=== PATIENT | female | born 1995 | race Caucasian/White ===

== ENCOUNTER 2016-08-18 19:00 | Emergency (ER) | payer BC ==
[~2016-08-18] VITALS: Ht 172.7 cm; Wt 66.8 kg
[~2016-08-18 19:00] MED LIST: BCPILLS PO; CNC/36 PO; ESCI10TA17 PO; PRLSR20 PO
[2016-08-18 19:04] VITALS: TEMP 36.4; Ht 172.7 cm; Wt 66.8 kg
[2016-08-18] MEDS ORDERED: OPTIRAY 320 IV PRN (19:30)
[2016-08-18 19:50] LABS: BASO % 0.1 %; BASO ABS # 0.01 K/uL (0-0.2); COMPLETE YES; EOS % 0.2 %; HEMATOCRIT 37.7 % (37-47); IG% 0.2 %; LYMPH ABS # 0.96 K/uL (1.2-3.4); MEAN CELL VOLUME 78.9 fL (80-100); MEAN CORPUSCULAR HEMOGLOBIN 25.5 pg (25-34); MEAN CORPUSCULAR HGB CONC 32.4 g/dl (32-36); MONO % 1.3 %; NEUT % 90.2 %; PLATELET COUNT 240 K/uL (130-400); RED BLOOD COUNT 4.78 M/uL (4.2-5.4); WHITE BLOOD COUNT 12.02 K/uL (4.8-10.8)
[2016-08-18] MEDS ORDERED: ONDANSETRON INJ 2 MG/ML 2 ML VIAL IV STA (19:52)
[2016-08-18] MEDS ORDERED: MoRPHine SULFATE 4 MG/ML 1 ML CARP\\VIAL IV STA (19:52)
[2016-08-18] MEDS ORDERED: SODIUM CHLORIDE 0.9% 1000ML 1,000 ML IV STA (19:52)
[2016-08-18 20:13] LABS: BUN/CREATININE RATIO 10.2 (10-20); CALCIUM 8.7 mg/dl (8.5-10.1); CREATININE 0.78 mg/dl (0.60-1.20); POTASSIUM 3.6 mmol/L (3.5-5.1)
[2016-08-18 20:53] LABS: URINE APPEARANCE TURBID (CLEAR); URINE BILIRUBIN NEG (NEG); URINE COLOR DK YELLOW; URINE EPITHELIAL CELL AUTO >30 /lpf (0-5); URINE NITRITE NEG (NEG); URINE SPECIFIC GRAVITY 1.027 (1.000-1.030); UROBILINOGEN NEG (NEG); ZZUR CULT IF INDIC CLEAN CATCH NO
[2016-08-18 20:54] LABS: MANUAL MICROSCOPIC REQUIRED? NO; REVIEW REQ? YES
--- NOTE | 2016-08-18 21:42 | DIAGNOSTIC IMAGING REPORT ---
CT OF THE ABDOMEN AND PELVIS WITH CONTRAST CLINICAL HISTORY: Right lower quadrant abdominal pain. COMPARISON STUDY: None. TECHNIQUE: Following IV administration of 119 mL of [id number], axial images of the abdomen and pelvis were obtained from the lung bases to the proximal femurs. Images were reviewed in the axial, sagittal, and coronal planes. IV contrast was administered without complication. Oral contrast was administered. CT DOSE: 401.61 mGy.cm FINDINGS: Lung bases are clear. The liver, spleen, adrenal glands, kidneys and pancreas are normal. There is no peripancreatic or pericholecystic infiltration. There is no hydronephrosis. Note is made of a left upper quadrant jejunojejunal intussusception that measures 6 cm in length. There is no upstream dilatation. The appendix is normal in caliber and filled with gas and oral contrast. There is no periappendiceal infiltration. Apparent mild wall thickening of the mid to distal transverse colon, descending colon and sigmoid colon is probably due to underdistention. There is a small amount of fluid within the pelvis. The ovaries are not enlarged. No enlarged lymph nodes are present within the abdomen or the pelvis. IMPRESSION: 1. Normal appendix. 2. Left upper quadrant jejunojejunal intussusception. No upstream dilatation. These are typically transient and of doubtful clinical significance. 3. Small amount of fluid within the pelvis. 4. Apparent wall thickening of the left colon. This is likely due to underdistention although a nonspecific colitis could appear similar. Electronically signed by: John Barrera M.D. 08/18/2016 9:40 PM Dictated Date/Time: 08/18/2016 9:33 PM
[2016-08-18] MEDS ORDERED: ONDA4TAB10 SL (21:53)
--- NOTE | 2016-08-18 21:54 | EMERGENCY ROOM VISIT NOTE ---
History First contact with patient: 19:08 Chief Complaint: ABDOMINAL PAIN Stated Complaint: THINKS APPENDIX BURST Nursing Triage Summary: right sided lower abdominal pain for two hours with increasing intensity. no vomiting noted. History of Present Illness The patient is a 21 year old female who presents to the Emergency Room with complaints of right-sided abdominal pain. The patient states that the pain began 2 hours ago. She states that at first, the pain was generalized and it has moved to the right lower abdomen. She has had one episode of diarrhea. She denies vomiting, but does feel slightly nauseous. She is concerned that her appendix may have burst. She rates her discomfort an 8/10. She took Tums for her symptoms without relief. She denies any history of abdominal surgery. She states that she is due to start her menstrual period this week. She denies any urinary symptoms, vaginal discharge, chest pain or shortness of breath. She denies hematochezia or melena. No recent antibiotic use or recent illness. Review of Systems A complete 10-point Review of Systems was discussed with the patient, with pertinent positives and negatives listed in the History of Present Illness. All remaining Review of Systems questions can be considered negative unless otherwise specified. Past Medical/Surgical History Medical Problems: (1) Back pain (2) History of orthopedic surgery (3) Upper back pain on right side Family History Cancer Hypertension Social History Smoking Status: Never Smoker Alcohol Use: none Drug Use: none Marital Status: single Housing Status: lives with family, lives with roommate Occupation Status: [employer] student Current/Historical Medications Scheduled Control Pills ( Control Pills), 1 TAB PO DAILY Escitalopram (Lexapro), 10 MG PO DAILY Methylphenidate Hcl (Concerta), 36 MG PO DAILY Omeprazole (Prilosec), 20 MG PO DAILY Ondasetron Odt (Zofran Odt), 4 MG SL Q6H Allergies Coded Allergies: Coconut (Unverified Allergy, Unknown, hives, 08/18/16) Physical Exam Vital Signs Date Time Temp Pulse Resp B/P Pulse Ox O2 Delivery O2 Flow Rate FiO2 08/18/16 22:02 72 20 117/67 99 08/18/16 21:00 84 20 118/68 100 Room Air 08/18/16 19:04 36.4 100 18 117/76 97 Room Air Physical Exam VITALS: Vitals are noted on the nurse's note and reviewed by myself. Vital signs stable. GENERAL: This is a 21-year-old female, in no acute distress, nondiaphoretic, well-developed well-nourished. SKIN: Capillary reflex less than 2 seconds. HEART: Regular rate and rhythm without murmurs gallops or rubs. LUNGS: Clear to auscultation bilaterally without wheezes, rales or rhonchi. ABDOMEN: Positive bowel sounds x 4. The abdomen is soft. There is mild tenderness to palpation of the right lower quadrant. No guarding or rebound tenderness. Negative Rovsing sign. Negative jar sign. NEURO: Patient was alert and oriented to person place and time. Medical Decision & Procedures ER Provider Diagnostic Interpretation: CT OF THE ABDOMEN AND PELVIS WITH CONTRAST IMPRESSION: 1. Normal appendix. 2. Left upper quadrant jejunojejunal intussusception. No upstream dilatation. These are typically transient and of doubtful clinical significance. 3. Small amount of fluid within the pelvis. 4. Apparent wall thickening of the left colon. This is likely due to underdistention although a nonspecific colitis could appear similar. Laboratory Results 08/18/16 19:30 Red Blood Count 4.78, Mean Corpuscular Volume 78.9, Mean Corpuscular Hemoglobin 25.5, Mean Corpuscular Hemoglobin Concent 32.4, Mean Platelet Volume 10.0, Neutrophils (%) (Auto) 90.2, Lymphocytes (%) (Auto) 8.0, Monocytes (%) (Auto) 1.3, Eosinophils (%) (Auto) 0.2, Basophils (%) (Auto) 0.1, Neutrophils # (Auto) 10.83, Lymphocytes # (Auto) 0.96, Monocytes # (Auto) 0.16, Eosinophils # (Auto) 0.03, Basophils # (Auto) 0.01 08/18/16 19:30 Test 08/18/16 00:00 08/18/16 19:30 Urine Color DK YELLOW Urine Appearance TURBID (CLEAR) Urine pH 5.0 (4.5-7.5) Urine Specific [place] 1.027 (1.000-1.030) Urine Protein NEG (NEG) Urine Glucose (UA) NEG (NEG) Urine Ketones TRACE (NEG) Urine Occult Blood NEG (NEG) Urine Nitrite NEG (NEG) Urine Bilirubin NEG (NEG) Urine Urobilinogen NEG (NEG) Urine Leukocyte Esterase NEG (NEG) Urine WBC (Auto) 1-5 /hpf (0-5) Urine RBC (Auto) 0-4 /hpf (0-4) Urine Hyaline Casts (Auto) 1-5 /lpf (0-5) Urine Epithelial Cells (Auto) >30 /lpf (0-5) Urine Bacteria (Auto) NEG (NEG) Urine Crystals See comments (NONE PRSENT) White Blood Count 12.02 K/uL (4.8-10.8) Red Blood Count 4.78 M/uL (4.2-5.4) Hemoglobin 12.2 g/dL (12.0-16.0) Hematocrit 37.7 % (37-47) Mean Corpuscular Volume 78.9 fL (80-100) Mean Corpuscular Hemoglobin 25.5 pg (25-34) Mean Corpuscular Hemoglobin Concent 32.4 g/dl (32-36) Platelet Count 240 K/uL (130-400) Mean Platelet Volume 10.0 fL (7.4-10.4) Neutrophils (%) (Auto) 90.2 % Lymphocytes (%) (Auto) 8.0 % Monocytes (%) (Auto) 1.3 % Eosinophils (%) (Auto) 0.2 % Basophils (%) (Auto) 0.1 % Neutrophils # (Auto) 10.83 K/uL (1.4-6.5) Lymphocytes # (Auto) 0.96 K/uL (1.2-3.4) Monocytes # (Auto) 0.16 K/uL (0.11-0.59) Eosinophils # (Auto) 0.03 K/uL (0-0.5) Basophils # (Auto) 0.01 K/uL (0-0.2) RDW Standard Deviation 39.6 fL (36.4-46.3) RDW Coefficient of Variation 14.0 % (11.5-14.5) Immature Granulocyte % (Auto) 0.2 % Immature Granulocyte # (Auto) 0.03 K/uL (0.00-0.02) Urine Test NEG (NEG) Anion Gap 9.0 mmol/L (3-11) Est Creatinine Clear Calc Drug Dose 115.1 ml/min Estimated GFR () 126.0 Estimated GFR (Non- 108.7 BUN/Creatinine Ratio 10.2 (10-20) Calcium Level 8.7 mg/dl (8.5-10.1) Total Bilirubin 0.5 mg/dl (0.2-1) Aspartate Amino Transf (AST/SGOT) 22 U/L (15-37) Alanine Aminotransferase (ALT/SGPT) 35 U/L (12-78) Alkaline Phosphatase 60 U/L (45-117) Total Protein 7.1 gm/dl (6.4-8.2) Albumin 3.6 gm/dl (3.4-5.0) Globulin 3.5 gm/dl (2.5-4.0) Albumin/Globulin Ratio 1.0 (0.9-2) Lipase 120 U/L (73-393) Medications Administered Medications (Trade) Dose Ordered Sig/Georgi Route Start Time Stop Time Status Last Admin Dose Admin Sodium Chloride (Nss 1000ml) 1,000 ml @ 999 mls/hr Q1H1M STAT IV 08/18/16 19:52 08/18/16 20:52 DC 08/18/16 20:07 999 MLS/HR Morphine Sulfate (MoRPHine SULFATE INJ) 4 mg NOW STAT IV 08/18/16 19:52 08/18/16 19:53 DC 08/18/16 20:07 4 MG Ondansetron HCl (Zofran Inj) 4 mg NOW STAT IV 08/18/16 19:52 08/18/16 19:53 DC 08/18/16 20:06 4 MG Ondansetron HCl (ZOFRAN ODT 4MG Home Pack) 1 homepack UD ONCE PO 08/18/16 22:00 08/18/16 22:01 DC 08/18/16 22:00 1 HOMEPACK Medical Decision Differential diagnosis includes appendicitis, ovarian cyst, ovarian torsion, colitis, gastroenteritis, among others. The patient was evaluated as above. Labs were drawn and IV access was obtained. Imaging studies were performed and read by radiology as above. The patient was medicated with 1 L normal saline solution, 4 mg morphine and 4 mg Zofran IV. The patient was reassessed multiple times during their stay in the emergency department and remained in stable condition. The patient is a and 21-year-old female who presents today complaining of right- sided abdominal pain. Labs revealed mild leukocytosis consistent with infection. No anemia or concerning electrolyte abnormalities Urinalysis was not suggestive of infection. Urine was negative. CT of the abdomen and pelvis was performed and read by radiology with no evidence of appendicitis. There are no findings concerning for acute infectious or inflammatory findings within the abdomen. I feel the patient likely has a viral GI illness. Conservative measures were discussed. She was given a home pack and prescription of Zofran. Based on the patient's presentation, lab results, and imaging studies, I feel the patient is stable for outpatient treatment. The patient's case was reviewed with Dr. Roque, ED attending physician, who agreed with my assessment and treatment plan. Discharge instructions were reviewed with the patient. The patient verbalized understanding of my assessment and treatment plan and was discharged home in good condition. Impression Primary Impression: Right lower quadrant abdominal pain Departure Information Dispostion Home / Self-Care Condition GOOD Prescriptions Ondasetron Odt (ZOFRAN ODT) 4 Mg Tab 4 MG SL Q6H for Nausea, #15 TAB Prov: Mahi Baptiste ., JIM 08/18/16 Referrals No Doctor, Assigned (PCP) Patient Instructions A Signature Page Additional Instructions You have been treated in the Emergency Department for Abdominal Pain. Laboratory results and imaging studies have ruled out any emergent causes for your abdominal pain which would warrant admission or surgery. You have been prescribed Zofran to be used for any nausea or vomiting. Take as prescribed. For pain control, you can use the following [id number] medicines (if >12 yo): - Regular strength (325mg/tab) Tylenol (acetaminophen) 2 tabs every 4-6 hours as needed. Do not exceed 12 tablets in a 24 hour period. Avoid taking more than 4 grams (4000 mg) of Tylenol per day. This includes any other sources of acetaminophen you may take on a regular basis. - Regular strength (200 mg/tab) Advil (ibuprofen) 1-2 tabs every 4-6 hours as needed. Do not exceed a dose of 3200 mg per day. Drink plenty of water and stay well hydrated. Follow-up with [facility] services in 2-3 days if you have persistent symptoms. Return to the emergency department if your symptoms persist despite treatment plan outlined above or if the following symptoms occur: increased fevers, chills , worsening nausea/vomiting, blood in your stool or urine.
[2016-08-18] MEDS ORDERED: ONDANSETRON HOME PACK 4MG OD TAB PO ONE (22:00)
[2016-08-18 22:02] VITALS: BP 117/67; PULSE 72; O2SAT 99
== END 2016-08-18 22:04 | disposition home or self-care (01) ==
LOC: C.EDB 19:01 → C.EDC 22:04
DX: R10.31 Right lower quadrant pain (principal); M54.9 Dorsalgia, unspecified; Z80.9 Family history of malignant neoplasm, unspecified; Z82.49 Family history of ischemic heart disease and other diseases of the circulatory system; Z79.3 Long term (current) use of hormonal contraceptives; Z79.899 Other long term (current) drug therapy